=== PATIENT | female | born 1990 | race Caucasian/White ===

== ENCOUNTER 2018-05-13 05:20 | Emergency (ER) | payer OTHER ==
--- NOTE | 2018-05-13 05:53 | PDOC ---
History of Present Illness - General Stated Complaint: FEVER, SORE THROAT Time Seen by Provider: 05/13/18 05:31 History Source: Patient Exam Limitations: No Limitations - History of Present Illness Initial Comments: 05/13/18 05:47 Patient is a 27F with no significant medical history here today complaining of fever, cough, rhinorrhea and sore throat that started two days ago. Patient endorses two flu positive sick contacts. Measured temp to 103 at home. Has taken no medication today. Denies chest pain and shortness of breath. Endorses nausea, no vomiting. No abdominal pain. 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 Past History - Past Medical History Allergies/Adverse Reactions: Allergies Allergy/AdvReac Type Severity Reaction Status Date / Time No Known Allergies Allergy Verified 05/13/18 05:58 Home Medications: Ambulatory Orders No Home Medications 0 dose .ROUTE UTDICT 12/31/12 - Immunization History Immunization Up to Date: Yes - Suicide/Smoking/Psychosocial Hx Smoking Status: No Smoking History: Never smoked Number of Cigarettes Smoked Daily: 0 Hx Alcohol Use: Yes (occasion) Drug/Substance Use Hx: No Substance Use Type: None Review of Systems - Review of Systems Able to Perform ROS?: Yes Comments:: 05/13/18 05:50 GENERAL/CONSTITUTIONAL: +fever +chills. No weakness. HEAD, EYES, EARS, NOSE AND THROAT: No change in vision. No sore throat. CARDIOVASCULAR: No chest pain or shortness of breath RESPIRATORY: +cough, no wheezing, or hemoptysis. GASTROINTESTINAL: +nausea, no vomiting, diarrhea or constipation. GENITOURINARY: No dysuria, frequency, or change in urination. MUSCULOSKELETAL: No joint or muscle swelling or pain. No neck or back pain. SKIN: No rash NEUROLOGIC: No headache, vertigo, loss of consciousness, or change in strength/ sensation. ENDOCRINE: No increased thirst. No abnormal weight change HEMATOLOGIC/LYMPHATIC: No anemia, easy bleeding, or history of blood clots. ALLERGIC/IMMUNOLOGIC: No hives or skin allergy. *Physical Exam - Physical Exam Comments: 05/13/18 05:50 GENERAL: Awake, alert, and fully oriented, in no acute distress HEAD: No signs of trauma, normocephalic, atraumatic EYES: PERRLA, EOMI, sclera anicteric, conjunctiva clear ENT: Auricles normal inspection, hearing grossly normal, nares patent, oropharynx erythematous with exudates NECK: Normal ROM, supple, no lymphadenopathy, JVD, or masses LUNGS: No distress, speaks full sentences, clear to auscultation bilaterally HEART: Regular rate and rhythm, normal S1 and S2, no murmurs, rubs or gallops, peripheral pulses normal and equal bilaterally. ABDOMEN: Soft, nontender, normoactive bowel sounds. No guarding, no rebound. No masses EXTREMITIES: Normal inspection, Normal range of motion, no edema. No clubbing or cyanosis. NEUROLOGICAL: Cranial nerves II through XII grossly intact. Normal speech, normal gait, no focal sensorimotor deficits SKIN: Warm, Dry, normal turgor, no rashes or lesions noted. ED Treatment Course - RADIOLOGY Radiology Studies Ordered: Category Date Time Status CHEST PA & LAT [RAD] Stat Radiology 05/13/18 05:41 Ordered Medical Decision Making - Medical Decision Making 05/13/18 05:51 Patient is 27F with flu symptoms. Vitals notable for mild tachycardia and fever. Patient appears well. Will eval with flu/rapid strep/cxr. Likely discharge. Given tylenol. 05/13/18 06:41 Flu negative. Preg neg. Pending cxr and rapid strep. *DC/Admit/Observation/Transfer Diagnosis at time of Disposition: Viral syndrome - Discharge Dispostion Disposition: HOME Condition at time of disposition: Good Decision to Admit order: No - Referrals Referrals: Seth Mancera [Primary Care Provider] - - Patient Instructions Printed Discharge Instructions: DI for Viral Syndrome Additional Instructions: Please follow up with your primary care physician this week. Please take tylenol and motrin for fever and sore throat. Please return if you have any new, worsening or concerning symptoms, especially increasing pain, shortness of breath, and increasing fever. - Post Discharge Activity Forms/Work/School Notes: Back to Work
[2018-05-13 06:00] VITALS: BP 130/73; PULSE 112; TEMP 100.1; BMI 35.2
[2018-05-13] MEDS ORDERED: ACETAMINOPHEN 325 MG TABLET (FP) ONE (06:08)
[2018-05-13] MEDS ORDERED: ACETAMINOPHEN 500 MG TABLET (FP) PO ONE (06:08)
[2018-05-13] MEDS: ACETAMINOPHEN 500 MG TABLET (FP) PO ONE ×2 (06:11→06:21)
--- NOTE | 2018-05-13 06:19 | PDOC ---
Attending Attestation - Resident Resident Name: Ryan Pascal - ED Attending Attestation I have performed the following: I have examined & evaluated the patient, The case was reviewed & discussed with the resident, I agree w/resident's findings & plan, Exceptions are as noted - HPI HPI: 05/13/18 06:50 Several days of productive cough, congestion, fevers/chills with multiple sick contacts - Physicial Exam PE: 05/13/18 06:51 agree with exam as documented by resident - Medical Decision Making 05/13/18 06:51 consider viral uri, flu, pna f/u swabs, cxr neg flu cxr clear of consolidations
== END 2018-05-13 06:50 | disposition home or self-care (01) ==
LOC: JER 05:20
DX: B34.9 Viral infection, unspecified (principal)
CPT/HCPCS: 71046-TC-FY; 84703; 87070; 87804; 87880; 99281-25

== ENCOUNTER 2021-03-14 04:39 | Day surgery (SDC) | payer OTHER ==
[2021-03-13 13:49] VITALS: BMI 40.3
[2021-03-14] MEDS ORDERED: MIDAZOLAM HCL 2 MG/2 ML SINGLE DOSE VIAL ONE (14:41)
[2021-03-14] MEDS ORDERED: PROPOFOL 20 ML ONE (14:41)
[2021-03-14] MEDS ORDERED: SEVOFLURANE 250 ML BTL ONE (15:23)
[2021-03-14] MEDS ORDERED: ceFAZolin SODIUM 1 GM VIAL ONE (15:24)
[2021-03-14] MEDS ORDERED: KETOROLAC TROMETHAMINE 30 MG/1 ML VIAL ONE (15:24)
[2021-03-14] MEDS ORDERED: DEXAMETHASONE SOD PHOSPHATE 4 MG/1 ML VIAL ONE (15:24)
[2021-03-14] MEDS ORDERED: ceFAZolin SODIUM 1 GM VIAL IVPB ONE (15:28)
[2021-03-14] MEDS ORDERED: ONDANSETRON 4 MG/2 ML VIAL IVPUSH PRN (15:47)
[2021-03-14] MEDS ORDERED: oxyCODONE HCL 5 MG TABLET PO PRN (15:47)
[2021-03-14] MEDS ORDERED: PROMETHAZINE HCL 25 MG/1 ML VIAL IVPUSH PRN (15:47)
[2021-03-14 17:58] VITALS: BP 132/79; PULSE 83; TEMP 98
[2021-03-14] MEDS ORDERED: ACETAMINOPHEN 325 MG TABLET (FP) PO PRN (18:17)
[2021-03-14] MEDS ORDERED: ACETAMINOPHEN 1000 MG/100 ML VIAL IVPB ONE (18:18)
[2021-03-14] MEDS ORDERED: IBUPROFEN 400 MG TABLET (FP) PO ONE (18:18)
== END 2021-03-14 17:45 | disposition home or self-care (01) ==
LOC: JASU-SURG 04:39
PROVIDERS: ATTEND Obstetrics & Gynecology
PROC: 0UDB7ZZ Extraction of Endometrium, Via Natural or Artificial Opening (ICD-10-PCS; principal; 2021-03-14 14:00)
PROC: 0UJD8ZZ Inspection of Uterus and Cervix, Via Natural or Artificial Opening Endoscopic (ICD-10-PCS; 2021-03-14 14:00)
DX: N92.1 Excessive and frequent menstruation with irregular cycle (principal); E66.01 Morbid (severe) obesity due to excess calories
CPT/HCPCS: 88305-TC; 94760

== ENCOUNTER 2021-05-26 13:49 | Emergency (ER) | payer OTHER ==
[2021-05-26 14:03] VITALS: BP 133/68; PULSE 80; TEMP 97.8; BMI 40.3
[2021-05-26 16:12] LABS: HCG,QUALITATIVE URINE Negative
[2021-05-26 16:13] LABS: EPI CELLS 4 /uL (0-25.1); HYALINE CASTS 0 /uL (0-3.1); URINE APPEARANCE CLEAR; URINE BACTERIA 6 /uL (0-1359); URINE BILIRUBIN NEGATIVE (NEGATIVE); URINE COLOR YELLOW; URINE GLUCOSE (UA) NEGATIVE (NEGATIVE); URINE KETONE TRACE (NEGATIVE); URINE LEUK ESTERASE NEGATIVE (NEGATIVE); URINE NITRITE NEGATIVE (NEGATIVE); URINE PROTEIN NEGATIVE (NEGATIVE); URINE RBC 1377 /uL (0-23.9); URINE UROBILINOGEN 0.2 mg/dL (0.2-1.0); URINE WBC 7 /uL (0-25.8)
[2021-05-26 16:40] LABS: BASO % 0.7 % (0-2.0); EOS % 2.3 % (0-4.5); HEMATOCRIT 35.4 % (32.4-45.2); HEMOGLOBIN 11.6 GM/dL (10.7-15.3); LYMPH % 29.8 % (8-40); MCH 25.7 pg (25.7-33.7); MCHC 32.9 g/dl (32.0-36.0); MEAN CELL VOLUME 78.1 fl (80-96); MEAN PLT VOLUME 8.2 fl (7.5-11.1); MONO % 6.7 % (3.8-10.2); NEUT % 60.5 % (42.8-82.8); PLATELET COUNT 320 10^3/uL (134-434); RBC 4.53 M/mm3 (3.60-5.2); RDW 17.5 % (11.6-15.6); WHITE BLOOD COUNT 7.7 K/mm3 (4.0-10.0)
[2021-05-26 17:02] LABS: ALBUMIN 3.8 g/dl (3.4-5.0); BLOOD UREA NITROGEN 8.8 mg/dL (7-18)
[2021-05-26 17:05] LABS: CREATININE 0.7 mg/dL (0.55-1.3)
[2021-05-26 17:07] LABS: BILIRUBIN,TOTAL 0.2 mg/dL (0.2-1); TOT PROT 7.3 g/dl (6.4-8.2)
== END 2021-05-26 19:41 | disposition home or self-care (01) ==
LOC: JER 13:49
DX: N93.9 Abnormal uterine and vaginal bleeding, unspecified (principal)
CPT/HCPCS: 36415; 80053; 81003; 84703; 85025; 85730; 86850; 86900; 86901; 87086; 99283-25

== ENCOUNTER 2022-06-01 17:24 | Emergency (ER) | payer OTHER ==
[2022-06-01 17:50] VITALS: BP 149/84; PULSE 88; RESP 16; TEMP 98; BMI 40.3
[2022-06-01] MEDS ORDERED: IBUPROFEN 600 MG TABLET (FP) PO ONE ×2 (18:25→18:29)
== END 2022-06-01 18:31 | disposition home or self-care (01) ==
LOC: JER 17:24 → JERFT 17:24
DX: H66.001 Acute suppurative otitis media without spontaneous rupture of ear drum, right ear (principal)
CPT/HCPCS: 99283-25